=== PATIENT | male | born 1940 | race Two or more races ===

== ENCOUNTER 2021-06-05 06:19 | Day surgery (SDC) | payer OTHER ==
[~2021-06-05] VITALS: Ht 182.9 cm; Wt 107.5 kg
[2021-06-05] VITALS (7 sets, daily range): BP systolic 104–135; BP diastolic 56–75
[~2021-06-05 06:19] MED LIST: ISOS10TA45 PO; LEVO75TA6 PO; SIMV-13 PO; WARF6TAB21 PO
[2021-06-05] MEDS ORDERED: IODIXANOL 320MG/ML 100ML BTL IV ONE (07:37)
[2021-06-05] MEDS ORDERED: GELATIN 1 SPONGE SIZE 50 TOP ONE (07:37)
[2021-06-05] MEDS ORDERED: ANGIOMAX 250 MG VIAL IV ONE (07:52)
[2021-06-05] MEDS ORDERED: MIDAZOLAM HCL 2MG/2ML 2ml VIAL (1mg/ml) ONE (07:53)
[2021-06-05] MEDS ORDERED: VERAPAMIL 2.5MG/ML INJ 2ML VIAL IV ONE (07:53)
[2021-06-05] MEDS ORDERED: fentaNYL CITRATE 100 MCG/2 ML VL ONE (07:53)
[2021-06-05] MEDS ORDERED: SODIUM CHL 0.9% 0 ML ONE (07:54)
[2021-06-05] MEDS ORDERED: LIDOCAINE 2%HCL (LOCAL ANESTH.) INJ 10ml MDV ONE (07:54)
== END 2021-06-05 11:15 | disposition home or self-care (01) ==
LOC: CATH 06:19
PROVIDERS: ATTEND Internal Medicine Cardiovascular Disease
DX: I25.10 Atherosclerotic heart disease of native coronary artery without angina pectoris (principal); I25.82 Chronic total occlusion of coronary artery; I48.91 Unspecified atrial fibrillation; I10 Essential (primary) hypertension; E78.5 Hyperlipidemia, unspecified; E03.9 Hypothyroidism, unspecified; Z82.49 Family history of ischemic heart disease and other diseases of the circulatory system; Z20.822 Contact with and (suspected) exposure to COVID-19
CPT/HCPCS: 93458; C1769; C1887; C1894; J1644; J2001; J2250; J3010; Q9967; U0003; 99152; 99153

== ENCOUNTER 2023-10-20 06:53 | Day surgery (SDC) | payer OTHER ==
[2023-10-20] VITALS (9 sets, daily range): BP systolic 116–139; BP diastolic 57–84; PULSE 73–91; RESP 11–22; TEMP 97.6; O2SAT 92–98
[~2023-10-20] VITALS: Ht 182.9 cm; Wt 116.6 kg
[~2023-10-20 06:53] MED LIST changes: -ISOS10TA45 PO; +ISOS1TAB29 PO; +METO-158 PO; +NITR0.4S29 SL; -SIMV-13 PO; +SIMV40TA18 PO; +TAMS0.4C39 PO; +TIMO0.5S28 EACHEYE; +WARF-110 PO; -WARF6TAB21 PO
[2023-10-20] MEDS ORDERED: GELATIN 1 SPONGE SIZE 50 TOP ONE (07:36)
[2023-10-20] MEDS ORDERED: IODIXANOL 320MG/ML 100ML BTL IV ONE ×2 (07:36→09:14)
[2023-10-20] MEDS ORDERED: HEPARIN IN NS 1000Units/500mL 1,500 ML ONE (07:36)
[2023-10-20] MEDS ORDERED: ANGIOMAX 250 MG VIAL IV ONE (08:15)
[2023-10-20] MEDS ORDERED: SODIUM CHL 0.9% 0 ML ONE (08:16)
[2023-10-20] MEDS ORDERED: VERAPAMIL 2.5MG/ML INJ 2ML VIAL IV ONE (08:16)
[2023-10-20] MEDS ORDERED: MIDAZOLAM HCL 2MG/2ML 2ml VIAL (1mg/ml) ONE (08:16)
[2023-10-20] MEDS ORDERED: fentaNYL CITRATE 100 MCG/2 ML VL ONE (08:16)
[2023-10-20] MEDS ORDERED: HEPARIN SODIUM (PORCINE) 5000 UNITS/ML 1ML VIAL ONE (08:16)
[2023-10-20] MEDS ORDERED: LIDOCAINE 2%HCL (LOCAL ANESTH.) INJ 20ML MDV ONE (08:17)
[2023-10-20 08:55] LABS: INR 1.02 (0.9-1.15); Prothrombin Time 10.8 sec (9.3-11.8)
== END 2023-10-20 12:08 | disposition home or self-care (01) ==
LOC: CATH 06:53
PROVIDERS: ATTEND Internal Medicine
DX: I25.10 Atherosclerotic heart disease of native coronary artery without angina pectoris (principal); I13.0 Hypertensive heart and chronic kidney disease with heart failure and stage 1 through stage 4 chronic kidney disease, or unspecified chronic kidney disease; N18.9 Chronic kidney disease, unspecified; I50.9 Heart failure, unspecified; I48.91 Unspecified atrial fibrillation; E78.00 Pure hypercholesterolemia, unspecified; Z79.899 Other long term (current) drug therapy; Z82.49 Family history of ischemic heart disease and other diseases of the circulatory system
CPT/HCPCS: 36415; 85610; 93005; 93458; C1769; C1894; J1644; J2250; J3010; Q9967; 99152